=== PATIENT | male | born 1950 | race Native Hawaiian/Other Pacific Islander ===

== ENCOUNTER → 2017-12-24 | Outpatient (CLI) | payer OTHER | END | disposition short-term general hospital (02) | LOC: AMB 14:10 | DX: R42 Dizziness and giddiness (principal); M79.601 Pain in right arm; I99.8 Other disorder of circulatory system; I48.91 Unspecified atrial fibrillation | CPT/HCPCS: A0425; A0429 ==

== ENCOUNTER 2018-06-25 08:52 | Outpatient (CLI) | payer OTHER | END 2018-06-25 22:47 | disposition home or self-care (01) | LOC: MRI 08:52 | DX: M54.17 Radiculopathy, lumbosacral region (principal) ==

== ENCOUNTER 2018-07-07 16:34 | Inpatient (IN) | payer OTHER ==
[~2018-07-07] VITALS: Ht 180.3 cm; Wt 118.2 kg
[2018-07-07 17:35] VITALS: BP 115/73; TEMP 97.5; Ht 180.3 cm; Wt 118.2 kg
[2018-07-07 18:18] LABS: POTASSIUM 4.3 mmol/L (3.6-5.2)
[2018-07-07 18:20] LABS: PLATELET COUNT 236 K/uL (142-355)
[2018-07-07 18:41] LABS: PARTIAL THROMBOPLASTIN TIME 51.5 SECONDS (24.5-33.6)
[2018-07-07 20:00] VITALS: BP 117/74; TEMP 98.3
[2018-07-07] MEDS ORDERED: ASA LOW STR81 MG PO (23:48)
[2018-07-07] MEDS ORDERED: PHENYTOIN EX100 MG PO ×3 (23:51→23:55)
[2018-07-07] MEDS ORDERED: CARV6.25 PO ×2 (23:52→23:55)
[2018-07-07] MEDS ORDERED: KLOR-CON M2020 MEQ PO (23:53)
[2018-07-07] MEDS ORDERED: ZOCOR80 MG PO (23:56)
[2018-07-07] MEDS ORDERED: NIACIN SR500 MG PO (23:56)
[2018-07-07] MEDS ORDERED: FENOFIBRATE PO (23:58)
[2018-07-08] VITALS: BP 102/63; TEMP 98.7
[2018-07-08 04:00] VITALS: BP 117/70; TEMP 97.7
[2018-07-08 08:00] VITALS: BP 101/72; TEMP 97.6
[2018-07-08 09:45] LABS: POTASSIUM 4.3 mmol/L (3.6-5.2); SODIUM 140 mmol/L (136-145)
[2018-07-08 12:00] VITALS: BP 109/74; TEMP 97.5
[2018-07-08 16:15] VITALS: BP 99/51; TEMP 98
[2018-07-08 20:00] VITALS: BP 111/67; TEMP 98
[2018-07-09] VITALS: BP 123/60; TEMP 98.3
[2018-07-09 04:00] VITALS: BP 131/70; TEMP 97.9
[2018-07-09 06:14] LABS: PLATELET COUNT 234 K/uL (142-355)
[2018-07-09 07:38] LABS: POTASSIUM 4.3 mmol/L (3.6-5.2)
[2018-07-09 08:00] VITALS: BP 119/69; TEMP 97.7
[2018-07-09 12:00] VITALS: BP 105/64; TEMP 98.1
[2018-07-09 16:00] VITALS: BP 110/61; TEMP 97.7
[2018-07-09 20:21] VITALS: BP 99/76; TEMP 98
== END 2018-07-09 20:14 | disposition home or self-care (01) | DRG 292 ==
LOC: MED/SURG 16:34
PROVIDERS: ADMIT Family Medicine
DX: I50.23 Acute on chronic systolic (congestive) heart failure (principal); G40.802 Other epilepsy, not intractable, without status epilepticus; I48.2 Chronic atrial fibrillation; G20 Parkinson's disease; R13.19 Other dysphagia; G47.19 Other hypersomnia; D64.89 Other specified anemias; E66.8 Other obesity; I11.0 Hypertensive heart disease with heart failure; E11.9 Type 2 diabetes mellitus without complications
CPT/HCPCS: 80048; 80053; 81000; 82550; 83735; 83880; 84100; 84443; 84484; 85027; 85610; 85730; 87040; 93005; 94760; 99220; G0379; J1650; J1885; J1940; J2270; J2405; J2550; J2920; J2930; J3490

== ENCOUNTER 2018-08-07 04:29 | Emergency (ER) | payer OTHER ==
[~2018-08-07] VITALS: Ht 180.3 cm; Wt 108.9 kg
[~2018-08-07 04:29] MED LIST: ASA LOW STR81 MG PO; CARV6.25 PO; FENOFIBRATE PO; KLOR-CON M2020 MEQ PO; NIACIN SR500 MG PO; PHENYTOIN EX100 MG PO; ZOCOR80 MG PO
[2018-08-07 06:19] VITALS: BP 152/99; TEMP 98.2
== END 2018-08-07 06:19 | disposition home or self-care (01) ==
LOC: ED 04:29
DX: M48.061 Spinal stenosis, lumbar region without neurogenic claudication (principal); M62.81 Muscle weakness (generalized); M54.5 Low back pain
CPT/HCPCS: 96372; 99283; J1885; J2930

== ENCOUNTER 2018-09-09 12:38 | Emergency (ER) | payer OTHER ==
[~2018-09-09] VITALS: Ht 180.3 cm; Wt 106.6 kg
[2018-09-09 12:45] VITALS: TEMP 98.2
[2018-09-09 14:15] LABS: PLATELET COUNT 300 K/uL (142-355)
[2018-09-09 14:27] LABS: POTASSIUM 4.4 mmol/L (3.6-5.2); SODIUM 132 mmol/L (136-145)
[2018-09-09 15:53] VITALS: BP 120/78
== END 2018-09-09 16:18 | disposition home or self-care (01) ==
LOC: ED 12:38
PROVIDERS: Emergency Medicine
DX: M25.561 Pain in right knee (principal); M25.461 Effusion, right knee; I48.91 Unspecified atrial fibrillation; Z98.890 Other specified postprocedural states
CPT/HCPCS: 36415; 80053; 82550; 83735; 84484; 85027; 93005; 96365; 96374; 96376; 99284; J1885; J3490

== ENCOUNTER 2018-11-07 04:16 | Outpatient (CLI) | payer OTHER | END 2018-11-07 04:43 | disposition short-term general hospital (02) | LOC: AMB 04:16 | DX: M25.561 Pain in right knee (principal); M25.571 Pain in right ankle and joints of right foot; M79.604 Pain in right leg; M25.551 Pain in right hip | CPT/HCPCS: A0425; A0427 ==

== ENCOUNTER 2019-01-29 18:45 | Emergency (ER) | payer OTHER ==
[~2019-01-29] VITALS: Ht 180.3 cm; Wt 99.8 kg
[2019-01-29 20:20] VITALS: BP 138/74; TEMP 98.3
== END 2019-01-29 20:20 | disposition home or self-care (01) ==
LOC: ED 18:45
DX: M25.512 Pain in left shoulder (principal)
CPT/HCPCS: 99282

== ENCOUNTER 2019-06-03 09:45 | Outpatient (CLI) | payer OTHER | END 2019-06-03 16:00 | disposition home or self-care (01) | LOC: RAD 09:45 | DX: R05 Cough (principal) ==

== ENCOUNTER 2020-09-28 11:13 | Outpatient (CLI) | payer OTHER | END 2020-09-28 21:53 | disposition home or self-care (01) | LOC: RAD 11:13 | PROVIDERS: ATTEND Family Medicine | DX: R29.898 Other symptoms and signs involving the musculoskeletal system (principal); M79.642 Pain in left hand; M25.532 Pain in left wrist; M25.542 Pain in joints of left hand; M79.641 Pain in right hand; M25.531 Pain in right wrist ==

== ENCOUNTER 2021-01-24 08:45 | Outpatient (CLI) | payer OTHER | END 2021-01-24 22:10 | disposition home or self-care (01) | LOC: LABW 08:45 | PROVIDERS: ATTEND Family Medicine | DX: Z51.81 Encounter for therapeutic drug level monitoring (principal); Z86.73 Personal history of transient ischemic attack (TIA), and cerebral infarction without residual deficits; I50.9 Heart failure, unspecified | CPT/HCPCS: 36415; 85610 ==

== ENCOUNTER 2021-11-14 08:37 | Outpatient (CLI) | payer OTHER | END 2021-11-14 19:52 | disposition home or self-care (01) | LOC: RAD 08:37 | PROVIDERS: ATTEND Family Medicine | DX: R10.84 Generalized abdominal pain (principal) ==

== ENCOUNTER 2022-11-05 14:49 | Emergency (ER) | payer OTHER ==
[~2022-11-05] VITALS: Ht 180.3 cm; Wt 111.1 kg
[2022-11-05 14:50] VITALS: TEMP 97.3
[2022-11-05 15:30] LABS: PLATELET COUNT 202 K/uL (142-355)
[2022-11-05 15:36] LABS: POTASSIUM 4.1 mmol/L (3.6-5.2)
[2022-11-05 15:45] LABS: PARTIAL THROMBOPLASTIN TIME 28.1 SECONDS (23.9-36.7)
[2022-11-05 19:45] VITALS: BP 130/71
== END 2022-11-05 19:45 | disposition home or self-care (01) ==
LOC: ED 14:49
PROVIDERS: Family Medicine
DX: R10.9 Unspecified abdominal pain (principal)
CPT/HCPCS: 80053; 81002; 82150; 83690; 85027; 85610; 85730; 93005; 99283; Q9963

== ENCOUNTER 2023-07-10 11:25 | Observation (INO) | payer OTHER ==
[~2023-07-10] VITALS: Ht 180.3 cm; Wt 10.7 kg
[~2023-07-10 11:25] MED LIST changes: +SIMV40TA57 PO; -ZOCOR80 MG PO
[2023-07-10 11:35] VITALS: BP 108/57; TEMP 99.4
[2023-07-10] MEDS ORDERED: Ondansetron HCl 4 MG INJ INJ ONE ×2 (11:57→16:18)
[2023-07-10 12:05] VITALS: BP 105/64
[2023-07-10 12:14] LABS: PLATELET COUNT 158 K/uL (142-355)
[2023-07-10 12:32] LABS: POTASSIUM 4.3 mmol/L (3.6-5.2)
[2023-07-10 13:02] VITALS: BP 106/75
[2023-07-10 14:02] VITALS: BP 103/62
[2023-07-10] MEDS ORDERED: DEXAMETHASONE SODIUM PHOSPHATE 4 MG INJ INJ ONE (16:04)
[2023-07-10 16:06] VITALS: BP 110/74
[2023-07-10] MEDS ORDERED: DEXAMETHASONE SODIUM PHOSPHATE 4 MG INJ ONE (16:06)
[2023-07-10] MEDS ORDERED: IPRATROPIUM-ALBUTEROL 1 SOL SOL INH ONE (16:19)
[2023-07-10] MEDS ORDERED: LEVOFLOXACIN IN D5W 50 ML IVPB ONE (16:23)
[2023-07-10] MEDS ORDERED: LEVOFLOXACIN IN D5W 50 ML IV ONE (16:26)
[2023-07-10] MEDS ORDERED: ALBUTEROL 90 MCG INH PRN (17:49)
[2023-07-10] MEDS ORDERED: MDI INH PRN (17:49)
[2023-07-10 18:18] VITALS: BP 109/51; TEMP 98.7
[2023-07-10 18:30] LABS: PARTIAL THROMBOPLASTIN TIME 66.4 SECONDS (23.9-36.7)
[2023-07-10] MEDS ORDERED: WARF3TAB12 PO (19:27)
[2023-07-10] MEDS ORDERED: METF500T PO (19:27)
[2023-07-10] MEDS ORDERED: FURO40TA93 PO (19:29)
[2023-07-10] MEDS ORDERED: FENOFIBRATE200 M1 PO (19:32)
[2023-07-10] MEDS ORDERED: DIGO0.1230 PO (19:33)
[2023-07-10] MEDS ORDERED: PHENYTOIN EX100 MG PO (19:34)
[2023-07-10] MEDS ORDERED: VITAMIN D5000 UNIT PO (19:36)
[2023-07-10] MEDS ORDERED: ALBUTEROL INH SCH (20:00)
[2023-07-10] MEDS ORDERED: IPRATROPIUM INH SCH (20:00)
[2023-07-10] MEDS ORDERED: DEXAMETHASONE SODIUM PHOSPHATE IV SCH (21:00)
[2023-07-10] MEDS ORDERED: FUROSEMIDE 40 MG TAB PO SCH (21:58)
[2023-07-10] MEDS ORDERED: DIGOXIN 0.125 MG TAB PO SCH (21:58)
[2023-07-10] MEDS ORDERED: PHENYTOIN SODIUM 100 MG CAP PO SCH (21:59)
[2023-07-11] VITALS: BP 111/67; TEMP 98.6
[2023-07-11 04:45] LABS: PLATELET COUNT 157 K/uL (142-355)
[2023-07-11 08:00] VITALS: BP 113/62; TEMP 98.7
[2023-07-11] MEDS ORDERED: PANTOPRAZOLE SODIUM 40 MG TAB PO SCH (09:00)
[2023-07-11] MEDS ORDERED: DEXAMETHASONE SODIUM PHOSPHATE 4 MG INJ IV SCH (09:00)
[2023-07-11 12:00] VITALS: BP 96/65; TEMP 99.3
[2023-07-11 16:00] VITALS: BP 118/79; TEMP 98.6
[2023-07-11] MEDS ORDERED: LEVOFLOXACIN IN D5W 50 ML IVPB SCH (16:00)
[2023-07-11] MEDS ORDERED: WARFARIN SODIUM 1 MG TAB PO SCH (16:34)
[2023-07-11] MEDS ORDERED: PHENYTOIN SODIUM 100 MG CAP PO SCH (17:00)
[2023-07-11 20:00] VITALS: BP 112/69; TEMP 98.9
[2023-07-11] MEDS ORDERED: CARVEDILOL 6.25 MG TAB PO SCH (21:00)
[2023-07-12] VITALS: BP 131/62; TEMP 98.6
[2023-07-12 04:00] VITALS: BP 128/70; TEMP 98.2
[2023-07-12 05:21] LABS: PLATELET COUNT 148 K/uL (142-355)
[2023-07-12 08:00] VITALS: BP 125/69; TEMP 99.2
[2023-07-12] MEDS ORDERED: DIGOXIN 0.125 MG TAB PO SCH (09:00)
[2023-07-12] MEDS ORDERED: ASPIRIN EC 81 MG TAB PO SCH (09:00)
[2023-07-12] MEDS ORDERED: POTASSIUM CHL 20 MEQ TAB PO SCH (09:00)
[2023-07-12] MEDS ORDERED: FUROSEMIDE 40 MG TAB PO SCH (09:00)
== END 2023-07-12 11:19 | disposition home or self-care (01) ==
LOC: ED 11:25 → MED/SURG 16:37
PROVIDERS: ADMIT Nurse Practitioner Family; ATTEND Internal Medicine Endocrinology, Diabetes & Metabolism
DX: U07.1 COVID-19 (principal); R05.9 Cough, unspecified; R51.9 Headache, unspecified; R10.9 Unspecified abdominal pain; R11.2 Nausea with vomiting, unspecified; I50.22 Chronic systolic (congestive) heart failure; I48.20 Chronic atrial fibrillation, unspecified; Z79.01 Long term (current) use of anticoagulants; G40.802 Other epilepsy, not intractable, without status epilepticus; E66.9 Obesity, unspecified; Z68.33 Body mass index [BMI] 33.0-33.9, adult; R09.02 Hypoxemia; J18.9 Pneumonia, unspecified organism
CPT/HCPCS: 36415; 80048; 80053; 83605; 83690; 84484; 85027; 85610; 85730; 87502; 87635; 93005; 94664; 94760; 96365; 96374; 96375; 99221; 99284; J1956; G0378; J1100; J2405; U0003